=== PATIENT | male | born 1945 | race Caucasian/White ===

== ENCOUNTER 2020-10-15 02:14 | Observation (INO) ==
[2020-10-15] MEDS ORDERED: NS 0.9% 1000 ml BAG 1,000 ML IV ONE (02:36)
[2020-10-15 03:16] LABS: ABS Lymphocytes 1.5 10^3/ul (1.0-4.8); ABS Monocytes 0.2 10^3/ul (0-0.8); ABS Neutrophils 8.8 10^3/ul (1.5-7.7); Eosinophil % 0.3 %; Hematocrit 46 % (42-52); Hemoglobin 15.4 g/dL (14.0-18.0); Lymphocyte % 14.4 %; Mean Corpuscular HGB Conc 34 g/dL (31-36); Mean Corpuscular Hemoglobin 31 pg (27-31); Mean Corpuscular Volume 92 fL (80-94); Mean Platelet Volume 8.9 fL (7.4-10.4); Platelet Count 189 10^3/uL (150-450); Red Blood Count 4.95 10^6 /uL (4.18-5.48); Red Cell Distribution Width 13 % (10-15); White Blood Count 10.6 10^3/uL (3.5-10.8)
[2020-10-15 03:35] LABS: Albumin 3.9 g/dL (3.2-5.2); Anion Gap 10 mmol/L (2-11); CO2 Carbon Dioxide 24 mmol/L (22-32); Chloride 106 mmol/L (101-111); Potassium 3.7 mmol/L (3.5-5.0); Sodium 140 mmol/L (135-145)
[2020-10-15 03:41] LABS: ALT 18 U/L (7-52); AST 17 U/L (13-39); Albumin/Globulin Ratio 1.8 (1-3); Alkaline Phosphatase 53 U/L (35-149); Blood Urea Nitrogen 29 mg/dL (6-24); EGFR African American 49.4 (>60); EGFR Non-African American 40.8 (>60); Globulin 2.2 g/dL (2-4); Glucose 122 mg/dL (70-100); Total Protein 6.1 g/dL (6.4-8.9)
[2020-10-15 04:17] LABS: Alcohol, S < 10 mg/dL (<10)
[2020-10-15 04:18] LABS: Troponin I 0.02 ng/mL (<0.03)
[2020-10-15 04:54] LABS: TSH Ultra Thyroid Stim Horm 11.43 mcIU/mL (0.34-5.60)
[2020-10-15 06:54] LABS: Urine Appearance Clear; Urine Bilirubin Negative (Negative); Urine Blood 1+ (Negative); Urine Color Yellow; Urine Glucose Negative (Negative); Urine Ketones Negative (Negative); Urine Nitrite Negative (Negative); Urine Protein Negative (Negative); Urine Specific Gravity 1.013 (1.002-1.030); Urine Urobilinogen Negative (Negative)
[2020-10-15 07:13] LABS: Urine Bacteria Absent (Absent); Urine Red Blood Cell Trace(0-2/hpf) (Absent); Urine Squamous Epithelial Cell Present (Absent); Urine White Blood Cell Trace(0-5/hpf) (Absent)
[2020-10-15 07:25] LABS: Free T4 1.13 ng/dL (0.61-1.12)
[2020-10-15 07:26] LABS: Troponin I 0.06 ng/mL (<0.03)
[2020-10-15] MEDS ORDERED: Perflutren Lipid Microsphere 3 ML VIAL ONE (09:07)
[2020-10-15] MEDS: Aspirin EC 81 mg TAB.EC (enteric coated) PO SCH (09:58)
[2020-10-15 10:35] LABS: Troponin I 0.05 ng/mL (<0.03)
[2020-10-16 07:08] LABS: ABS Eosinophils 0.3 10^3/ul (0-0.6); ABS Lymphocytes 1.9 10^3/ul (1.0-4.8); ABS Monocytes 0.6 10^3/ul (0-0.8); Eosinophil % 4.2 %; Hematocrit 42 % (42-52); Hemoglobin 14.4 g/dL (14.0-18.0); Mean Corpuscular HGB Conc 35 g/dL (31-36); Mean Corpuscular Hemoglobin 32 pg (27-31); Mean Corpuscular Volume 91 fL (80-94); Platelet Count 165 10^3/uL (150-450); Red Blood Count 4.57 10^6 /uL (4.18-5.48); Red Cell Distribution Width 13 % (10-15); White Blood Count 6.8 10^3/uL (3.5-10.8)
[2020-10-16 07:23] LABS: EGFR African American 57.7 (>60); EGFR Non-African American 47.7 (>60)
[2020-10-16] MEDS: Aspirin EC 81 mg TAB.EC (enteric coated) PO SCH (10:07)
[2020-10-16 12:42] VITALS: BP 161/84
== END 2020-10-16 15:15 | disposition home or self-care (01) ==
LOC: ED 02:14 → MEDTELE 02:14
PROVIDERS: ADMIT Pediatrics; ATTEND Internal Medicine